=== PATIENT | male | born 1990 | race Caucasian/White ===

== ENCOUNTER 2018-05-18 13:16 | Emergency (ER) | payer SELFPAY ==
--- NOTE | 2018-05-18 13:38 | ED Physician Documentation ---
General Adult - HISTORIAN Historian: patient - HPI Stated Complaint: N/V/D & Headache Chief Complaint: General Adult Additional Information: 3 days NVD. Vomited twice yesterday, diarrhea twice yesterday. None today, but feels nauseated. Urine x 1 today in 4 hours. Feels hot and thinks he got over heated. Two glasses of water and one Gatorade today. - ROS CONST: other (above) - PAST HX Past History: other (schizophrenia) Allergies/Adverse Reactions: Allergies Allergy/AdvReac Type Severity Reaction Status Date / Time haloperidol [From Haldol] Allergy Verified 05/18/18 13:32 Home Medications: Ambulatory Orders Medication Instructions Recorded LORazepam [Ativan] 1 mg PO 05/18/18 - SOCIAL HX Smoking History: cigarettes - FAMILY HX Family History: No - VITAL SIGNS Vital Signs: Vital Signs Temp Pulse Resp BP Pulse Ox 97.9 F 75 18 119/74 99 05/18/18 13:20 05/18/18 13:20 05/18/18 13:20 05/18/18 13:20 05/18/18 13:20 - REVIEWED ASSESSMENTS Nursing Assessment Reviewed: Yes Vitals Reviewed: Yes Progress - Progress Progress: 2L NS. 800 ml urine out. Has been sleeping. Labs reassuring. ED Results Lab/Radiology - Orders Orders: ED Orders Category Date Time Status Place IV Lock 1T Care 05/18/18 13:26 Active CBC/PLATELET/DIFF Routine Lab 05/18/18 Ordered CMP Routine Lab 05/18/18 Ordered URINALYSIS Routine Lab 05/18/18 Ordered ck [CREATINE KINASE] Routine Lab 05/18/18 Ordered 0.9 % Sodium Chloride [Normal Saline] 1,000 ml Med 05/18/18 13:26 Active IV Q1H Ondansetron HCl Rapdis [Zofran Odt] Med 05/18/18 13:36 Once 4 mg PO NOW ONE General Adult Physical Exam - PHYSICAL EXAM GENERAL APPEARANCE: mild distress EENT: eye inspection normal, ENT inspection normal, pharynx normal, dry mucous membranes NECK: normal inspection, supple RESPIRATORY: breath sounds normal CVS: reg rate & rhythm, heart sounds normal ABDOMEN: soft, normal bowel sounds, non-tender BACK: normal inspection, no CVA tenderness, CVA tenderness (R) SKIN: warm/dry, normal color EXTREMITIES: normal range of motion (gait and stance), no evidence of injury NEURO: CN's nml as tested, motor nml, sensation nml Discharge Clincal Impression: Nausea vomiting and diarrhea Referrals: Primary Doctor,No [Primary Care Provider] - 2 Days Condition: Good Disposition: 01 HOME, SELF-CARE Decision to Admit: NO Decision Time: 15:30
[2018-05-18] MEDS: 0.9 % SODIUM CHLORIDE 1,000 ML IV ONE ×2 (13:40→14:50)
[2018-05-18 13:48] LABS: BASOPHILS % 0.5 (0.0-1.5); EOSINOPHILS % 4.1 % (0.0-6.8)
[2018-05-18] MEDS: ONDANSETRON HCL 4 MG TAB.RAPDIS PO ONE (13:52)
[2018-05-18 14:02] LABS: eGFR (African) > 60; eGFR (Non-African) > 60
[2018-05-18 14:44] VITALS: BP 117/68
[2018-05-19 07:58] LABS: APPEARANCE,URINE CLEAR (CLEAR); COLOR,URINE YELLOW (YELLOW); OCCULT BLOOD,URINE NEGATIVE (NEGATIVE); UROBILINOGEN URINE 0.2 Eu (0.2-1.0)
== END 2018-05-18 15:40 | disposition home or self-care (01) ==
LOC: ED 13:16
DX: R11.2 Nausea with vomiting, unspecified (principal); R19.7 Diarrhea, unspecified
CPT/HCPCS: 80053; 82550; 85025; A9270; J7030; 81002; 96365; 96366; 99284; S1016

== ENCOUNTER 2019-05-09 09:32 | Outpatient (CLI) | payer OTHER ==
[2019-05-09 10:29] LABS: eGFR (Non-African) > 60
[2019-05-09 10:35] LABS: BASOPHILS % 1 % (0-2); SEGMENTED NEUTROPHILS % 50 % (39-79)
== END 2019-05-09 09:34 ==
LOC: LAB 09:32
PROVIDERS: ATTEND Family Medicine
DX: Z79.899 Other long term (current) drug therapy (principal)
CPT/HCPCS: 36415; 80053; 85025

== ENCOUNTER 2019-06-12 16:33 | Emergency (ER) | payer OTHER ==
[2019-06-12 16:53] VITALS: BP 134/73
--- NOTE | 2019-06-12 16:56 | ED Physician Documentation ---
Skin Rash - HISTORIAN Historian: patient - HPI Stated Complaint: Rash Chief Complaint: Skin Rash Additional Information: Patient is a 29-year-old unkept male that presents to the ER with his girlfriend- both with rash that has appeared over the last couple of days; he describes rash as intense itching on both arms, hands-web of fingers, pubic area, armpits, neck and face. He denies any contact with allergens, no new soaps or detergents. Rash appears to be in the form of scabies- he did not act surprised- states he has not been diagnosed with scabies in the past. His clothes are dirty- unknown last bath- hair is dirty and oily- he picks at the scabs- denies any drug abuse. Onset: days ago Timing: still present Duration: persistent since Location: facial, LUE, RLE, R axillary, L axillary Quality: itchy (intense itching, linear erythematous burrows, on both arms, hands, pubic area, armpits, neck and face) Identified Cause?: Yes (looks like scabies) Where: home Context: Medication Exposure: none Context: Food Exposure: none Context: Other Exposure: other (scabies) - ROS CONST: none CVS/RESP: none EYES/ENT: none GI/: none MS/SKIN/LYMPH: none NEURO/PSYCH: none - PAST HX Past History: other (depression, anxiety, schizophrenia, chronic back pain) Other History: none Surgeries/Procedures: No Immunizations: UTD Allergies/Adverse Reactions: Allergies Allergy/AdvReac Type Severity Reaction Status Date / Time haloperidol [From Haldol] Allergy Verified 05/18/18 13:32 Home Medications: Ambulatory Orders Medication Instructions Recorded Buspirone HCl [Buspar] 1 tab PO Q6 PRN 06/12/19 Citalopram Hydrobromide 1 tab PO DAILY 06/12/19 [Citalopram HBr] Diclofenac Sodium [Voltaren] 1 tab PO BID 06/12/19 Gabapentin [Neurontin] 1 tab PO TID 06/12/19 Olanzapine [Zyprexa Zydis] 1 tab PO DAILY 06/12/19 Pantoprazole Sodium [Protonix] 1 tab PO DAILY 06/12/19 Permethrin [Elimite] 60 gm TP DAILY #1 cream..g. 06/12/19 Tizanidine HCl [Zanaflex] 1 tab PO Q8 PRN 06/12/19 - SOCIAL HX Smoking History: greater than 1 pack/day Alcohol Use: none Drug Use: none (denies) - FAMILY HX Family History: none - VITAL SIGNS Vital Signs: Vital Signs Temp Pulse Resp BP Pulse Ox 98.4 F 104 H 16 134/73 95 06/12/19 17:00 06/12/19 17:00 06/12/19 17:00 06/12/19 17:00 06/12/19 17:00 - REVIEWED ASSESSMENTS Nursing Assessment Reviewed: Yes Vitals Reviewed: Yes Skin Rash Physical Exam - EXAM General Appearance: no acute distress, alert Skin: warm,dry, skin rash, erythema Location: face, chest, back, extremities, other (webs of finger) Character: linear, erythematous (burrows) Symptoms: warmth, tenderness Extremities: nml ROM EENT: eyes nml inspection Neck: trachea midline Respiratory: breath sounds normal CVS: heart sounds nml Neuro/Psych: oriented x3, CN's nml as tested, motor nml, sensation nml, mood/affect nml Discharge Clincal Impression: Scabies infestation Prescriptions: Permethrin [Elimite] 60 gm TP DAILY #1 cream..g. Referrals: Matthew Keenan MD [Primary Care Provider] - 2 Days Additional Instructions: Permethrin; apply from neck down to the soles of feet, wash off after 8-14 hours; repeat every 2-3 days Wash linens in hot water Clean surfaces Shower daily Follow up with PCP in 2 weeks if no improvement Condition: Good Disposition: 01 HOME, SELF-CARE Decision to Admit: NO Decision Time: 17:00
== END 2019-06-12 17:00 | disposition home or self-care (01) ==
LOC: ED 16:33
DX: B86 Scabies (principal)
CPT/HCPCS: 99282

== ENCOUNTER 2019-07-14 18:35 | Emergency (ER) | payer OTHER ==
--- NOTE | 2019-07-14 18:46 | ED Physician Documentation ---
General Adult - HISTORIAN Historian: patient - HPI Stated Complaint: chest pain, cough Chief Complaint: General Adult Onset: days ago Timing: still present Severity: moderate Further Comments: yes (Pt is a 29 yo male who has not been feeling well x 3 days. Pt has had a cough and chest pain when he takes a deep breath. He says it feels like there is a weight on his chest. Pt states that he has had swelling of his ankles yesterday. Pt is a smoker, 1/2 ppd. PMHx: schizoaffective d/o, seizures) - ROS CONST: other (malaise) EYES/ENT: sore throat (yesterday) CVS/RESP: chest pain (pain with deep breath), cough GI/: none MS/SKIN/LYMPH: ankle swelling - PAST HX Past History: other (schizoaffective d/o; seizures) Allergies/Adverse Reactions: Allergies Allergy/AdvReac Type Severity Reaction Status Date / Time haloperidol [From Haldol] Allergy Verified 07/14/19 18:55 Home Medications: Ambulatory Orders Medication Instructions Recorded Buspirone HCl [Buspar] 1 tab PO Q6 PRN 06/12/19 Citalopram Hydrobromide 1 tab PO DAILY 06/12/19 [Citalopram HBr] Diclofenac Sodium [Voltaren] 1 tab PO BID 06/12/19 Gabapentin [Neurontin] 1 tab PO TID 06/12/19 Olanzapine [Zyprexa Zydis] 1 tab PO DAILY 06/12/19 Pantoprazole Sodium [Protonix] 1 tab PO DAILY 06/12/19 Permethrin [Elimite] 60 gm TP DAILY #1 cream..g. 06/12/19 Tizanidine HCl [Zanaflex] 1 tab PO Q8 PRN 06/12/19 Albuterol Sulfate [Proair 90 mcg IH Q4H PRN #1 [email or web address] 07/14/19 Respiclick] Azithromycin 250 mg PO DAILY #5 tablet 07/14/19 - SOCIAL HX Smoking History: cigarettes - FAMILY HX Family History: No - VITAL SIGNS Vital Signs: Vital Signs Temp Pulse Resp BP Pulse Ox 134/73 06/12/19 17:00 - REVIEWED ASSESSMENTS Nursing Assessment Reviewed: Yes Vitals Reviewed: Yes Progress - Progress Progress: Rx Azithromycin 250 mg. Take one tablet by mouth once daily for 5 days. Rx Albuterol (90 mcg/spray). Take 2 puffs every 4 to 6 hrs as needed for wheezing/cough. Continue Voltaren as directed. - EKG/XRAY/CT EKG: NSR (HR=90; LAD.) XRAY: chest ( No active pulmonary pathology) General Adult Physical Exam - PHYSICAL EXAM GENERAL APPEARANCE: mild distress EENT: pharynx normal NECK: normal inspection, supple RESPIRATORY: other (coarse breath sounds) CVS: reg rate & rhythm, heart sounds normal ABDOMEN: soft, no organomegaly, normal bowel sounds BACK: normal inspection, no CVA tenderness SKIN: warm/dry, normal color EXTREMITIES: non-tender, normal range of motion, no evidence of injury, no edema NEURO: oriented X3, motor nml, sensation nml Discharge Clincal Impression: Bronchitis Prescriptions: Albuterol Sulfate [Proair Respiclick] 90 mcg IH Q4H PRN #1 aer.[email or web address] PRN Reason: Wheezing Azithromycin 250 mg PO DAILY #5 tablet Referrals: Matthew Keenan MD [Primary Care Provider] - Condition: Stable Disposition: 01 HOME, SELF-CARE Decision to Admit: NO Decision Time: 21:15
[2019-07-14 19:57] LABS: SEGMENTED NEUTROPHILS % 59 % (39-79)
[2019-07-14 19:58] LABS: eGFR (Non-African) > 60
[2019-07-14] MEDS: AZITHROMYCIN 250 MG TABLET PO ONE (21:04)
--- NOTE | 2019-07-14 22:04 | Diagnostic Imaging Report ---
JACQUELINE LAND [facility] [address] [facility] [address] [address] Report Submission Date: Jul 14, 2019 7:43:51 PM CDT Patient Study Name: BATOOL SANCHEZ Date: Jul 14, 2019 7:20:52 PM CDT Modality Type: DX Gender: M Description: CHEST 2VIEW : 88 Institution: [facility] Physician: JACQUELINE LAND Chest PA and lateral views Clinical history: Cough and chest pain Normal heart shadow and mediastinum. Clear lungs without acute infiltrate or pleural effusion. No pneumothorax. Normal bony thorax. Impression: No active pulmonary pathology Electronically signed on Jul 14, 2019 7:43:51 PM CDT by: Ryan DAMICO
[2019-07-14 22:32] VITALS: BP 129/95
== END 2019-07-14 21:05 | disposition home or self-care (01) ==
LOC: ED 18:35
DX: J40 Bronchitis, not specified as acute or chronic (principal); F17.210 Nicotine dependence, cigarettes, uncomplicated
CPT/HCPCS: 71046; 80053; 82550; 82553; 84484; 85025; 85379; 93005; 99283; 99284; S1016

== ENCOUNTER 2019-10-12 09:20 | Emergency (ER) | payer OTHER ==
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
[2019-10-12 09:42] VITALS: BP 131/76
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
[2019-10-12] MEDS: IBUPROFEN 200 MG TABLET PO ONE (10:53)
== END 2019-10-12 11:34 | disposition home or self-care (01) ==
LOC: ED 09:20
DX: S52.121A Displaced fracture of head of right radius, initial encounter for closed fracture (principal); S20.219A Contusion of unspecified front wall of thorax, initial encounter; V19.9XXA Pedal cyclist (driver) (passenger) injured in unspecified traffic accident, initial encounter; Y93.55 Activity, bike riding; Y92.009 Unspecified place in unspecified non-institutional (private) residence as the place of occurrence of the external cause
CPT/HCPCS: 99282; 99283